=== PATIENT | female | born 1940 | race Caucasian/White ===

== ENCOUNTER → 2017-02-06 | Outpatient (CLI) | payer MEDICARE, OTHER ==
[~2017-02-06] MED LIST: ACID REDUCER OTC; ANTIVERT PO; ASPIRIN325 M1 PO; ASPIRIN81 M2 PO; ATORVASTATIN CA10 MG PO; BAYER ASPIRIN325 M1 PO; BENTYL20 MG PO; CHEWABLE ASPIRI81 MG PO; CIPRO PO; CLARITIN10 M2 PO; CLARITIN10 M3 PO; COUMADIN4 MG PO; COUMADIN6 MG PO; DARVOCET-N 1001 TAB PO; DISCONTINUED MED; GABAPENTIN300 MG PO; HCTZ PO; HYDROCHLOROTHIA25 MG PO; HYDROCODONE-A1 UDTA1 PO; HYDROCODONE-APA1 T57 PO; LEVOXYL100 MCG PO; LIPITOR PO; LISINOPRIL10 MG PO; LODINE PO; LOMOTIL TABLET1 TAB PO; LOSARTAN POTASS25 MG PO; MOBIC15 MG PO; MUCINEX D ER T1 EACH PO; NABUMETONE PO; PERCOCET 10/3251 TAB PO; PERCOCET 5-3251 TAB PO; PHENERGAN PO; RELAFEN PO; SYNTHROID PO; TOPROL XL PO; TRIAMCINOLONE A15 G2 TOP; TRIAMCINOLONE AC1 GM EXT; VITAMIN B12-FO1 EACH PO
--- NOTE | ~2017-02-06 | MY29 ---
[facility] A Service of [facility] RADIOLOGY TEXT RESULTS PATIENT: AMANAD VERGARA LOCATION: [facility] : 42 UNIT #: [id number] AGE: [address]: Maria E Moise MD SEX: F ORDER DR: [id number] [facility] [address]. [place], [place] [address] [id number] O MR#: [id number] Acc #: [id number] NAME: AMANDA VERGARA : 1940 SEX: F STUDY DATE/TIME: 02/06/2017 10:01 UNIT: [facility] ROOM: STUDY DESCRIPTION: MY AMA SCREENING W/ CAD BILAT Attending Physician: Maria E Moise M.D. Ordering Physician: Maria E Moise M.D. Primary Care Physician: Maria E Moise M.D. MEDICAL IMAGING REPORT This report is preliminary unless electronic signature is present EXAM Digital screening mammogram, 02/06/2017, [facility]. HISTORY 76-year-old woman; positive family history. Annual screening. COMPARISON Comparison mammograms date to 09/27/2005, with most recent 08/24/2015. FINDINGS Digital imaging of each breast was completed utilizing a two-view examination of each breast in craniocaudal and mediolateral-oblique projections. Review and interpretation of digital mammograms include a second review in conjunction with FDA-approved CAD device. There is a normal parenchymal presentation bilaterally consistent with the patient's age. There are no breast masses imaged and no parenchymal asymmetry is visualized. There are no suspicious microcalcifications and I see no focal architectural disturbance. NOTE: Breast parenchyma is fatty replaced IMPRESSION Negative screening digital mammogram. One-year followup recommended. Patients over the age of 40 are entered into a reminder system with target due date for the next mammogram. A result letter will also be sent to the patient. BIRADS: 1 Negative Dictated by... [facility] A Service of [facility] & [facility] RADIOLOGY TEXT RESULTS PATIENT: AMANDA VERGARA LOCATION: [facility] : 42 UNIT #: [id number] AGE: [address]: Maria E Moise MD SEX: F ORDER DR: Dudley Harding M.D. THIS IS AN ELECTRONICALLY VERIFIED REPORT Dudley Harding M.D. at 02/06/2017 2:44 PM YFN/rosy TD: 02/06/2017 13:27 JOB #: [id number] MEDICAL IMAGING REPORT Page 1 of 1 COPY
== END | disposition home or self-care (01) ==
LOC: CWCC 09:41
DX: Z12.31 Encounter for screening mammogram for malignant neoplasm of breast (principal); Z80.3 Family history of malignant neoplasm of breast
CPT/HCPCS: G0202